=== PATIENT | male | born 1945 | race Caucasian/White ===

== ENCOUNTER 2016-12-28 10:26 | Emergency (ER) | payer OTHER, MEDICARE ==
[~2016-12-28] VITALS: Ht 172.7 cm; Wt 64.3 kg
[~2016-12-28 10:26] MED LIST: CENTRUM COMPLE1 EACH PO; EXCEDRIN EXTRA1 EACH PO; FINASTERIDE5 MG PO; FLORASTOR250 MG PO; HYDROCHLOROTHIA25 MG PO; METRONIDAZOLE500 MG PO; PANTOPRAZOLE SO40 MG PO; PRILOSEC20 MG PO; PROSCAR5 MG PO; PROTONIX40 MG PO
[2016-12-28] MEDS ORDERED: PRAVASTATIN SOD40 MG PO (11:48)
[2016-12-28] MEDS ORDERED: AMLODIPINE BES2.5 MG PO (11:48)
[2016-12-28] MEDS ORDERED: PREDNISONE10 MG PO (12:25)
[2016-12-28] MEDS ORDERED: PERCOCET 5/31 TABLET PO (12:25)
[2016-12-28 12:29] VITALS: BP 120/72
== END 2016-12-28 12:52 | disposition home or self-care (01) ==
LOC: EME 10:26
DX: S39.012A Strain of muscle, fascia and tendon of lower back, initial encounter (principal); X50.9XXA Other and unspecified overexertion or strenuous movements or postures, initial encounter; K21.9 Gastro-esophageal reflux disease without esophagitis; I10 Essential (primary) hypertension; Z85.828 Personal history of other malignant neoplasm of skin; F17.200 Nicotine dependence, unspecified, uncomplicated
CPT/HCPCS: 72100; 72170; 99281; 99284; J1885; J3010; J7512

== ENCOUNTER → 2017-06-22 | Outpatient (CLI) | payer MEDICARE ==
[~2017-06-22] MED LIST changes: +AMLODIPINE BES2.5 MG PO; +PERCOCET 5/31 TABLET PO; +PRAVASTATIN SOD40 MG PO; +PREDNISONE10 MG PO
== END | disposition home or self-care (01) ==
LOC: CDC 09:59
DX: Z01.810 Encounter for preprocedural cardiovascular examination (principal)
CPT/HCPCS: 93000